=== PATIENT | male | born 1985 | race Asian ===

== ENCOUNTER 2024-07-21 14:43 | Emergency (ER) | payer MEDICAID, OTHER ==
[~2024-07-21] VITALS: Ht 167.6 cm; Wt 100.0 kg
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
[2024-07-21] MEDS: SODIUM CHLORIDE 0.9% 1,000 ML IV ONE (15:38)
[2024-07-21] MEDS: cefTRIAXone 1GM/50ML D5W 50 ML IV ONE (15:38)
[2024-07-21] MEDS: TETANUS-DIPTH-ACEL PERTUSSIS 0.5ML SYR Tdap IM ONE (15:39)
[2024-07-21 15:55] LABS: Basophils # (auto) 0 10 ^3/uL (0-0.2); Basophils % (auto) 0.2 % (0.0-2.0); Eosinophils # (auto) 0 10 ^3/uL (0-0.8); Eosinophils % (auto) 0.3 % (0.0-7.0); Lymphocytes # (auto) 1.4 10 ^3/uL (0.4-5.4); Lymphocytes % (auto) 12.1 % (10.0-50.0); Mean Corpuscular Hemoglobin 29.5 pg (28.0-32.0); Mean Corpuscular Hgb Conc. 34.1 g/dL (32.0-36.0); Mean Corpuscular Volume 86.5 fL (80.0-100.0); Monocytes # (auto) 0.9 10 ^3/uL (0-1.3); Monocytes % (auto) 7.6 % (0.0-12.0); Neutrophils # (auto) 9.3 10 ^3/uL (1.6-8.6); Neutrophils % (auto) 79.8 % (37.0-80.0); Nucleated Red Blood Cells % 0.3 %; Platelet Count (auto) 261 10^3/uL (140-450); Red Blood Cells 5.78 10^6/uL (4.5-5.90); Red Cell Distribution Width 12.9 % (11.8-14.3); White Blood Cell 11.7 10^3/uL (4.4-10.8)
[2024-07-21 16:04] LABS: Chloride 104 mmol/L (98-107); Potassium 3.7 mmol/L (3.5-5.1); Sodium 136 mmol/L (136-145)
[2024-07-21 16:05] LABS: Anion Gap 10 (5-15); Calcium 10.1 mg/dL (8.7-10.4); Carbon Dioxide 22 mmol/L (20-31)
[2024-07-21 16:10] LABS: BUN/Creatinine Ratio 13.8 (10.0-20.0); Blood Urea Nitrogen 11 mg/dL (9-23); Glucose 100 mg/dL (74-106)
[2024-07-21] MEDS: LABETALOL HCL 20 MG/4 ML VL IV ONE ×2 (16:15→16:16)
[2024-07-21] MEDS: CLINDAMYCIN 600MG IV 50 ML IV ONE (16:16)
--- NOTE | 2024-07-21 16:31 | DVH ---
CLINICAL INDICATION: 38 years old, Male; cellulitis. TECHNIQUE: Noncontrast CT of the left foot was performed. Sagittal and coronal reformatted images are provided. COMPARISON: None CT Dose: CTDI volume is 7.75 mGy. Dose-length product is 219.66 mGy*cm FINDINGS: Mild soft tissue swelling in the foot. No fluid collection. No fracture or dislocation. No cortical d estruction. Joint spaces are maintained. IMPRESSION: 1. No CT evidence of osteomyelitis. 2. Soft tissue swelling in the foot which may reflect cellulitis. HS:Y All CT scans at this medical facility are performed using dose modulation techniques as appropriate t o a performed exam including the following: Automated exposure control was utilized; adjustment of th e MA and/or KV according to patient size; and use of iterative reconstruction technique.
[2024-07-21] MEDS ORDERED: cloNIDine HCL 0.1 MG TAB PO ONE (18:00)
[2024-07-21 21:13] VITALS: BP 149/109; PULSE 90; RESP 15; TEMP 98.6; O2SAT 96
[2024-07-21] MEDS ORDERED: AUG875T PO (21:21)
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
== END 2024-07-21 21:26 | disposition left against medical advice (07) ==
LOC: ER 14:43
DX: I16.1 Hypertensive emergency (principal); L03.116 Cellulitis of left lower limb; M10.9 Gout, unspecified
CPT/HCPCS: 36415; 73700; 80048; 85025; 90471; 90715; 96365; 96366; 96367; 96375; 99285; J0696; J3490